=== PATIENT | male | born 1945 | race Caucasian/White ===

== ENCOUNTER 2017-10-25 11:47 | Day surgery (SDC) | payer MEDICARE, SELFPAY ==
[2017-10-25 12:21] VITALS: BP 143/84; PULSE 56; RESP 16; TEMP 36.5; O2SAT 98; BMI 28.0
--- NOTE | 2017-10-25 12:57 | PM.PREOP ---
Pre-operative Note Interval Note Pre-op Check: Yes History & Physical Reviewed by Physician Changes: No
--- NOTE | 2017-10-25 13:10 | SUR.PREOP ---
DR WATKINS SAW PT, STATED NO ORDERS NEEDED.
[2017-10-25] MEDS: TETRACAINE 0.5% OPHTH DROPS 15 ML 2 DROPS EYE-BOTH (14:11)
[2017-10-25] MEDS: NEOMYCIN/POLY/DEX OPHTH OINT 1 APPLIC EYE-BOTH (14:16)
[2017-10-25] MEDS: BALANCED SALT IRRIG SOLN NO.2 15 ML IRRIG.SOLN IRR (14:22)
[2017-10-25] MEDS: LIDOCAINE 2% W/EPI INJ 20 ML INJ (14:28)
[2017-10-25] MEDS: BUPIVACAINE 0.5% (PF) VIAL 30 ML INJ (14:32)
[2017-10-25 15:20] VITALS: BP 146/77; PULSE 60; RESP 14; TEMP 36; O2SAT 98
--- NOTE | 2017-10-25 15:22 | PM.OP.1 ---
Operative Date/Time/Diagnoses Date of procedure: 10/25/17 Time of procedure: 15:22 Pre-op diagnosis: Bilateral extropion Post-op diagnosis: same Procedure & Clinicians Procedure: Bilateral lateral tarsal strip Same procedure as scheduled: Yes Indications: bilateral ectropion Surgeon: Christiano Colbert Click Yes if Unassisted: Yes Operative Notes Procedure in detail: Time out was performed, the correct patient, site and location were confirmed. The patient was prepped and draped in the typical sterile fashion. The left side was addressed first. Approximately 4cc of a 50/50 mixture of 0.5%bupivacaine and 2% lidocaine with epinephrine was injected into the lower eyelid and lateral palpebral commissure. An 11 blade and Lary scissors were used to dissect down to the periosteum of the lateral orbital rim. The lateral tarsal strip was dissected at the anterior lamellar plate approximately 4 mm. The caudal portion of the tarsal strip was removed with Lary scissors. The palpebral mucosa was cauterized. The lateral tarsal strip was attached to the periosteum overlying Whitnall's tubercle with 4-0 mersilene. The lower eyelid placement was checked and found to be in proper anatomic position. The lateral commissure was re-created with 5-0 vicryl. Two deep vicryl sutures were placed and the skin was approximated with interrupted 5-0 plain gut. The right side was addressed next. Approximately 2cc of a 50/50 mixture of 0.5%bupivacaine and 2% lidocaine with epinephrine was injected into the lower eyelid and lateral palpebral commissure. An 11 blade and Lary scissors were used to dissect down to the periosteum of the lateral orbital rim. The lateral tarsal strip was dissected at the anterior lamellar plate approximately 2 mm. The caudal portion of the tarsal strip was removed with Lary scissors. The palpebral mucosa was cauterized. The lateral tarsal strip was attached to the periosteum overlying Whitnall's tubercle with 4-0 mersilene. The lower eyelid placement was checked and found to be in proper anatomic position. The lateral commissure was re-created with 5-0 vicryl. Two deep vicryl sutures were placed and the skin was approximated with interrupted 5-0 plain gut. Condition: stable Disposition: same day surgery
--- NOTE | 2017-10-25 15:31 | P.OP_ITS ---
Operative Date/Time/Diagnoses Date of procedure: 10/25/17 Time of procedure: 15:22 Pre-op diagnosis: Bilateral extropion Post-op diagnosis: same Procedure & Clinicians Procedure: Bilateral lateral tarsal strip Same procedure as scheduled: Yes Indications: bilateral ectropion Surgeon: Christiano Colbert Click Yes if Unassisted: Yes Operative Notes Procedure in detail: Time out was performed, the correct patient, site and location were confirmed. The patient was prepped and draped in the typical sterile fashion. The left side was addressed first. Approximately 4cc of a 50/ 50 mixture of 0.5%bupivacaine and 2% lidocaine with epinephrine was injected into the lower eyelid and lateral palpebral commissure. An 11 blade and Lary scissors were used to dissect down to the periosteum of the lateral orbital rim. The lateral tarsal strip was dissected at the anterior lamellar plate approximately 4 mm. The caudal portion of the tarsal strip was removed with Lary scissors. The palpebral mucosa was cauterized. The lateral tarsal strip was attached to the periosteum overlying Whitnall's tubercle with 4-0 mersilene. The lower eyelid placement was checked and found to be in proper anatomic position. The lateral commissure was re-created with 5-0 vicryl. Two deep vicryl sutures were placed and the skin was approximated with interrupted 5 -0 plain gut. The right side was addressed next. Approximately 2cc of a 50/50 mixture of 0.5%bupivacaine and 2% lidocaine with epinephrine was injected into the lower eyelid and lateral palpebral commissure. An 11 blade and Lary scissors were used to dissect down to the periosteum of the lateral orbital rim. The lateral tarsal strip was dissected at the anterior lamellar plate approximately 2 mm. The caudal portion of the tarsal strip was removed with Lary scissors. The palpebral mucosa was cauterized. The lateral tarsal strip was attached to the periosteum overlying Whitnall's tubercle with 4-0 mersilene. The lower eyelid placement was checked and found to be in proper anatomic position. The lateral commissure was re- created with 5-0 vicryl. Two deep vicryl sutures were placed and the skin was approximated with interrupted 5-0 plain gut. Condition: stable Disposition: same day surgery
== END 2017-10-25 15:50 | disposition home or self-care (01) ==
PROVIDERS: Visit Provider Ophthalmology
PROC: (CPT 67917; principal; 2017-10-25 13:15)
DX: H02.125 Mechanical ectropion of left lower eyelid (principal); H02.122 Mechanical ectropion of right lower eyelid
CPT/HCPCS: 67917; J2250; J3010